=== PATIENT | male | born 1955 | race Two or more races ===

== ENCOUNTER 2018-09-03 18:31 | Emergency (ER) | payer BC ==
[~2018-09-03] VITALS: Ht 172.7 cm; Wt 81.6 kg
[2018-09-03 20:25] LABS: Basophils # (auto) 0.1 uL; Basophils % (auto) 0.6 % (0.0-2.0); Eosinophils # (auto) 0.3 uL; Eosinophils % (auto) 2.8 % (0.0-7.0); Hematocrit 45.6 % (41.0-53.0); Hemoglobin 15.5 g/dL (13.5-17.5); Lymphocytes # (auto) 2.1 uL; Lymphocytes % (auto) 18.8 % (10.0-50.0); Mean Corpuscular Hemoglobin 30.4 pg (28.0-32.0); Mean Corpuscular Hgb Conc. 34.1 g/dL (32.0-36.0); Mean Corpuscular Volume 89.3 fL (80.0-100.0); Monocytes % (auto) 9.3 % (0.0-12.0); Neutrophils # (auto) 7.7 uL; Neutrophils % (auto) 68.5 % (37.0-80.0); Nucleated Red Blood Cells % 0.1 %; Platelet Count (auto) 188 10^3/uL (140-450); Red Blood Cells 5.11 10^6/uL (4.5-5.90); Red Cell Distribution Width 12.7 % (11.8-14.3); White Blood Cell 11.2 10^3/uL (4.4-10.8)
[2018-09-03 20:40] LABS: INR 0.94 (0.9-1.15); Partial Thromboplastin Time 23.6 sec (23.78-33.04); Prothrombin Time 10.1 sec (9.27-12.13)
[2018-09-03 20:46] LABS: Albumin 3.9 g/dL (3.4-5.0); Anion Gap 9 (5-15); Blood Urea Nitrogen 22 mg/dL (7-18); Calcium 8.5 mg/dL (8.5-10.1); Carbon Dioxide 25 mmol/L (21-32); Chloride 103 mmol/L (98-107); Glucose 248 mg/dL (74-106); Magnesium 2.1 mg/dL (1.6-2.6); Potassium 3.6 mmol/L (3.5-5.1); Sodium 137 mmol/L (136-145)
[2018-09-03 20:48] LABS: Alanine Aminotransferase 55 U/L (16-61); Aspartate Aminotransferase 22 U/L (15-37); BUN/Creatinine Ratio 17.6; GFR African American 75 mL/min; GFR Non-African American 62 mL/min
[2018-09-03 20:53] LABS: Alkaline Phosphatase 78 U/L (45-117); Bilirubin, Total 0.7 mg/dL (0.2-1.0); Total Protein 8.1 g/dL (6.4-8.2)
[2018-09-03] MEDS ORDERED: SODIUM CHLORIDE 0.9% 1,000 ML IV ONE (20:53)
[2018-09-03] MEDS ORDERED: ONDANSETRON HCL 4 MG/2 ML VIAL IV ONE (21:00)
[2018-09-03] MEDS ORDERED: HYDROmorphone HCL 2 MG/ML VL IV ONE (21:00)
[2018-09-03 23:54] VITALS: BP 151/79
== END 2018-09-04 00:45 | disposition short-term general hospital (02) ==
LOC: ER 18:31
DX: S22.42XA Multiple fractures of ribs, left side, initial encounter for closed fracture (principal); S27.0XXA Traumatic pneumothorax, initial encounter; E11.9 Type 2 diabetes mellitus without complications; F12.10 Cannabis abuse, uncomplicated; Z88.2 Allergy status to sulfonamides; W19.XXXA Unspecified fall, initial encounter; Y93.89 Activity, other specified; Y92.89 Other specified places as the place of occurrence of the external cause; Y99.8 Other external cause status
CPT/HCPCS: 32551; 36415; 71045; 71101; 71250; 73030; 80053; 83735; 84484; 85025; 85610; 85730; 93005; 94761; 96374; 96375; 99285; J1170; J2405; J7030

== ENCOUNTER 2019-09-28 06:56 | Emergency (ER) | payer BC ==
[~2019-09-28] VITALS: Ht 172.7 cm; Wt 81.6 kg
[2019-09-28 07:23] VITALS: BP 128/74
== END 2019-09-28 15:49 | disposition left against medical advice (07) ==
LOC: ER 06:56
DX: R11.2 Nausea with vomiting, unspecified (principal); R73.9 Hyperglycemia, unspecified; Z53.21 Procedure and treatment not carried out due to patient leaving prior to being seen by health care provider
CPT/HCPCS: 74176; 82962

== ENCOUNTER 2024-05-16 19:57 | Emergency (ER) | payer BC, OTHER ==
[~2024-05-16] VITALS: Ht 170.2 cm; Wt 77.2 kg
[2024-05-16] MEDS ORDERED: IBUP-1455 PO (23:49)
[2024-05-16] MEDS ORDERED: HYDR-4798 PO (23:49)
[2024-05-17] MEDS: KETOROLAC TROMETH 30 MG/ML 1ML VIAL IM ONE (00:17)
[2024-05-17 00:59] VITALS: BP 136/69; PULSE 76; TEMP 97.8
[2024-05-17 01:00] VITALS: RESP 16; O2SAT 96
== END 2024-05-17 01:01 | disposition home or self-care (01) ==
LOC: ER 19:57
DX: S20.211A Contusion of right front wall of thorax, initial encounter (principal); E11.9 Type 2 diabetes mellitus without complications; F15.90 Other stimulant use, unspecified, uncomplicated; Z87.891 Personal history of nicotine dependence; Z88.2 Allergy status to sulfonamides; V98.8XXA Other specified transport accidents, initial encounter; Y93.55 Activity, bike riding; Y92.89 Other specified places as the place of occurrence of the external cause; Y99.8 Other external cause status
CPT/HCPCS: 71101; 96372; 99283; J1885